=== PATIENT | female | born 1960 | race Caucasian/White ===

== ENCOUNTER 2019-08-09 11:51 | Outpatient (CLI) | payer OTHER ==
--- NOTE | 2019-08-09 12:34 | RAD ---
RIGHT FOOT 3 VIEWS: DATE: 08/09/2019. HISTORY: Bruising, injury. FINDINGS: There is mild degenerative change at the 1st metatarsophalangeal joint. There is no displaced fractu re or evidence of dislocation. If symptoms persist, MRI may be beneficial. IMPRESSION: No acute fracture or dislocation seen. POS: DEVANTE
== END 2019-08-09 11:52 | disposition home or self-care (01) ==
LOC: SCSRAD 11:51
PROVIDERS: ATTEND Family Medicine
DX: M79.672 Pain in left foot (principal)

== ENCOUNTER 2019-09-16 15:13 | Outpatient (CLI) | payer OTHER ==
--- NOTE | 2019-09-16 20:02 | MRI ---
EXAM: RIGHT FOOT MRI WITHOUT IV CONTRAST: 09/16/19 HISTORY: Right foot pain following injury. FINDINGS: Multiplanar, multisequence MRI examination of the right foot is performed. No evidence for abnormal m arrow signal to suggest acute stress injury or fracture. There is some focal thickening and increased signal in the plantar fascia approximately 2.5 cm from the calcaneal insertion. There is some adjace nt perifascial edema. This appearance certainly could be consistent with that of a partial thickness interstitial type tear. It is conceivable this could represent an acute Plantar fascia fibroma. The A chilles tendon is unremarkable. Sinus tarsi and spring ligament regions are unremarkable. Flexor, ext ensor, and peroneus tendons are unremarkable. Medial and lateral ankle collateral ligament complexes are unremarkable. No evidence for talar dome osteochondral lesion. IMPRESSION: Approximately 0.8 x 0.8 x 2.2 cm diameter focal area of abnormal signal and thickening within the italo ntar fascia approximately 2.5 cm from the calcaneal insertion with some surrounding edema and fat str anding certainly concerning for partial thickness interstitial tear. I would favor that over this rep resenting a fibroma. POS: RRE
== END 2019-09-16 15:14 | disposition home or self-care (01) ==
LOC: BICMRI 15:13
PROVIDERS: ATTEND Family Medicine
DX: M79.671 Pain in right foot (principal); M79.672 Pain in left foot; R60.0 Localized edema; M72.2 Plantar fascial fibromatosis

== ENCOUNTER 2021-01-11 13:16 | Outpatient (CLI) | payer OTHER | END 2021-01-11 13:17 | disposition home or self-care (01) | LOC: BICRAD 13:16 | PROVIDERS: ATTEND Internal Medicine | DX: Z00.00 Encounter for general adult medical examination without abnormal findings (principal) | CPT/HCPCS: 71046 ==